=== PATIENT | female | born 1965 | race Caucasian/White ===

== ENCOUNTER 2017-09-17 17:31 | Emergency (ER) | payer OTHER ==
[~2017-09-17 17:31] MED LIST: ALPR0.5T99 PO; FLUO-1 PO; Z.0.NO CURRENT MEDS
[2017-09-17 17:34] VITALS: BP 135/65; PULSE 86; RESP 16; TEMP 97.9; O2SAT 97
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
[2017-09-17] MEDS ORDERED: KETOROLAC TROMETHAMINE 60 MG/2 ML (IM) VIAL IM ONE (18:45)
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
== END 2017-09-17 19:27 | disposition home or self-care (01) ==
LOC: NEPK 17:31
DX: S09.90XA Unspecified injury of head, initial encounter (principal); S16.1XXA Strain of muscle, fascia and tendon at neck level, initial encounter; S56.911A Strain of unspecified muscles, fascia and tendons at forearm level, right arm, initial encounter; V43.52XA Car driver injured in collision with other type car in traffic accident, initial encounter; Y92.488 Other paved roadways as the place of occurrence of the external cause
CPT/HCPCS: 70450; 72125; 73080; 96372; 99284; J1885